=== PATIENT | male | born 1950 | race Caucasian/White ===

== ENCOUNTER 2019-04-17 13:00 | Inpatient (IN) | payer MEDICARE, OTHER ==
[~2019-04-17] VITALS: Ht 193 cm; Wt 107.9 kg
[2019-04-17 13:28] LABS: BASOPHILS ABSOLUTE AUTO 0.09 K/mm3 (0.00-0.23); BASOPHILS PERCENT AUTO 0 % (0-2); EOSINOPHILS ABSOLUTE AUTO 0.04 K/mm3 (0.00-0.68); EOSINOPHILS PERCENT AUTO 0 % (0-6); Hematocrit 44.3 % (37.0-53.0); Hemoglobin 15.6 g/dL (13.5-17.5); IMMATURE GRAN ABSOLUTE AUTO 0.15 K/mm3 (0.00-0.10); IMMATURE GRAN PERCENT AUTO 1 % (0-1); LYMPHOCYTES ABSOLUTE AUTO 1.46 K/mm3 (0.84-5.20); LYMPHOCYTES PERCENT AUTO 6 % (21-46); MONOCYTES ABSOLUTE AUTO 1.67 K/mm3 (0.16-1.47); MONOCYTES PERCENT AUTO 7 % (4-13); Mean Corpuscular HGB 32.8 pg (26.0-34.0); Mean Corpuscular HGB Conc 35.2 g/dL (31.5-36.5); Mean Corpuscular Volume 93 fL (80-100); Mean Platelet Volume 10.1 fL (9.1-12.4); NEUTROPHILS ABSOLUTE AUTO 19.36 K/mm3 (1.96-9.15); NEUTROPHILS PERCENT AUTO 85 % (41-73); Platelet Count 310 K/mm3 (150-400); RDW Coefficient Variation 12.8 % (11.7-14.2); Red Blood Cell Count 4.76 M/mm3 (4.30-5.90); White Blood Cell Count 22.77 K/mm3 (4.00-11.30)
[2019-04-17 13:28] LABS: Source, Urine Clean Catch
[2019-04-17 13:32] LABS: Appearance, Urine Clear (Clear); Bilirubin, Urine Neg (Neg); Blood, Urine Neg (Neg); Color, Urine Yellow (P-Yellow); Glucose Qualitative, Urine Neg (Neg); Ketones, Urine Neg (Neg); Leukocyte Esterase, Urine 1+ (Neg); Nitrite, Urine Neg (Neg); Protein, Urine Neg (Neg); Urobilinogen, Urine NORM (Normal)
[2019-04-17 13:37] LABS: Red Blood Cells, Urine 0-2 /hpf (0-2)
[2019-04-17 13:38] LABS: Bacteria Many /hpf; Squamous Epithelial Cells Rare /hpf (Few)
[2019-04-17 13:42] LABS: U Amphetamine Screen Not Detected; U Barbituate Screen Not Detected; U Benzodiazapine Screen Not Detected; U Buprenorphine Screen Not Detected; U Cannabinoids Screen Not Detected; U Cocaine Screen Not Detected; U Methadone Screen Not Detected; U Methamphetamine Screen Not Detected; U Opiates Screen Not Detected; U Oxycodone Screen DETECTED; U Phencyclidine Screen Not Detected; U Propoxyphene Screen Not Detected
[2019-04-17 13:47] LABS: Alanine Aminotransfer (ALT/SGP 30 U/L (12-78); Albumin, Blood 3.5 g/dL (3.4-5.0); Albumin/Globulin Ratio 0.9 (0.8-1.8); Alk Phos 119 U/L (50-136); Anion Gap 10 mmol/L (6-16); Aspartate Aminotrans (AST/SGOT 18 U/L (12-37); Bilirubin, Total 0.8 mg/dL (0.1-1.0); Blood Urea Nitrogen 8 mg/dL (8-24); Bun/Creatinine Ratio 10.7 (12.0-20.0); CO2, Blood 23 mmol/L (21-32); Calcium, Blood 8.3 mg/dL (8.5-10.1); Chloride, Blood 92 mmol/L (98-108); Creatinine, Blood 0.75 mg/dL (0.60-1.20); Globulin, Blood 3.8 g/dL (2.2-4.0); Glomerular Filtration Rate >60 (60-); Glucose, Blood 132 mg/dL (70-99); Potassium, Blood 4.3 mmol/L (3.5-5.5); Sodium, Blood 125 mmol/L (136-145); Total Protein, Blood 7.3 g/dL (6.4-8.2); Troponin I <0.015 ng/mL (0.000-0.040)
--- NOTE | 2019-04-17 18:40 | NUR ---
PATIENT ARRIVED TO ROOM ICU 4 VIA STRETCHER FROM ER AFTER TELEPHONE REPORT WAS CALLED TO THIS RN BY IVAN GONZALEZ, PATIENT WAS ABLE TO MOVE SELF FROM STRETCHER TO BED WITH SBA, PATIENT HAS SORE RIBS AND T8-T9 COMPRESSION FRACTURE FROM FALL A FEW DAYS EARLIER, FOR WHICH HE WAS HOSPITALIZED AT [place], [place], PATIENT IS AFEBRILE, SCD'S APPLIED, PATIENT WAS GIVEN A SANDWICH AND SOUP, MEDICATION LIST IS INCOMPLETE, PATIENT DOES NOT KNOW HIS MEDICATIONS AT THIS TIME, PLACED ON MONITOR, CALL LIGHT GIVEN AND EXPLAINED, WILL CONTINUE TO MONITOR AND GIVE REPORT TO ONCOMING PEN MAKER.
--- NOTE | 2019-04-17 20:00 | NUR ---
PT RESTING IN BED. A/O X4. C/O PAIN IN BACK AND RIBS. PT HAS FRACTURES TO RIBS AND BACK, MEDICATED WITH OXYCODONE. LIBRIUM GIVEN WELL, SEE CIWA DOCUMENTATION. PT IS PLEASANT AND COOPERATIVE. NO SIGN OF DISTRESS.
[2019-04-18 03:20] LABS: BASOPHILS PERCENT AUTO 1 % (0-2); EOSINOPHILS ABSOLUTE AUTO 0.11 K/mm3 (0.00-0.68); EOSINOPHILS PERCENT AUTO 1 % (0-6); Hematocrit 42.1 % (37.0-53.0); Hemoglobin 14.2 g/dL (13.5-17.5); IMMATURE GRAN ABSOLUTE AUTO 0.09 K/mm3 (0.00-0.10); IMMATURE GRAN PERCENT AUTO 1 % (0-1); LYMPHOCYTES ABSOLUTE AUTO 2.21 K/mm3 (0.84-5.20); LYMPHOCYTES PERCENT AUTO 12 % (21-46); MONOCYTES ABSOLUTE AUTO 1.81 K/mm3 (0.16-1.47); MONOCYTES PERCENT AUTO 10 % (4-13); Mean Corpuscular HGB 33.2 pg (26.0-34.0); Mean Corpuscular HGB Conc 33.7 g/dL (31.5-36.5); NEUTROPHILS ABSOLUTE AUTO 13.49 K/mm3 (1.96-9.15); NEUTROPHILS PERCENT AUTO 76 % (41-73); Platelet Count 269 K/mm3 (150-400); RDW Coefficient Variation 13.1 % (11.7-14.2); RDW Standard Deviation 47.1 fL (35.1-46.3); Red Blood Cell Count 4.28 M/mm3 (4.30-5.90); White Blood Cell Count 17.81 K/mm3 (4.00-11.30)
[2019-04-18 03:22] LABS: Mean Corpuscular Volume 98 fL (80-100)
[2019-04-18 03:39] LABS: Alanine Aminotransfer (ALT/SGP 22 U/L (12-78); Albumin, Blood 2.7 g/dL (3.4-5.0); Albumin/Globulin Ratio 0.9 (0.8-1.8); Alk Phos 99 U/L (50-136); Anion Gap 4 mmol/L (6-16); Aspartate Aminotrans (AST/SGOT 16 U/L (12-37); Bilirubin, Total 1.1 mg/dL (0.1-1.0); Blood Urea Nitrogen 11 mg/dL (8-24); Bun/Creatinine Ratio 11.6 (12.0-20.0); CO2, Blood 29 mmol/L (21-32); Calcium, Blood 7.8 mg/dL (8.5-10.1); Chloride, Blood 98 mmol/L (98-108); Creatinine, Blood 0.95 mg/dL (0.60-1.20); Globulin, Blood 3.1 g/dL (2.2-4.0); Glomerular Filtration Rate >60 (60-); Glucose, Blood 92 mg/dL (70-99); Potassium, Blood 4.9 mmol/L (3.5-5.5); Sodium, Blood 131 mmol/L (136-145); Total Protein, Blood 5.8 g/dL (6.4-8.2)
--- NOTE | 2019-04-18 06:19 | NUR ---
SUMMARY PT RESTING IN BED. A/O X4. HAS HAD PAIN IN BACK AND RIBS ALL NIGHT. PROVIDED HEATING PAD AND GAVE OXYCODONE WHICH PROVIDED GOOD RELIEF. LAST CIWA SCORE OF 9. PLEASANT AND COOPERATIVE WITH CARE AND ASKING QUESTIONS ABOUT CARE. NO SIGN OF DISTRESS.
--- NOTE | 2019-04-18 07:20 | NUR ---
START OF SHIFT NOTE: RECEIVED REPORT FROM IVAN ECHOLS, ASSUMED CARE, PATIENT IS SLEEPING BUT EASILY AROUSEABLE, DENIES ANY PAIN AT THIS TIME, AFEBRILE, LUNG SOUNDS ARE DIMINISHED, NSR, HR IN 90'S, BOWEL TONES HYPOACTIVE, PATIENT USES URINAL AND STANDS AT SIDE OF BED TO URINATE, COOPERATIVE AT THIS TIME, CALL LIGHT IN REACH, WILL CONTINUE TO MONITOR.
--- NOTE | 2019-04-18 08:18 | NUR ---
PATIENT FOUND TRYING TO EXIT BED, ASKED FOR URINAL, CALL LIGHT USE REINFORCED, PATIENT VERBALIZED UNDERSTANDING, VOIDED ORANGE COLORED URINE, STANDS AT SIDE OF BED WITH ONE ASSIST, BACK TO BED, SET UP FOR BREAKFAST, PATIENT VERY APPRECIATIVE AND COOPERATIVE, CALL LIGHT IN REACH, WILL CONTINUE TO MONITOR.
--- NOTE | 2019-04-18 09:15 | NUR ---
DR. LESTER IN TO SEE PATIENT, NO NEW ORDERS RECEIVED.
--- NOTE | 2019-04-18 10:03 | NUR ---
PATIENT RECEIVED 25 MG OF LIBRIUM PRN FOR INCREASE S/S OF WITHDRAWAL, RECEIVED BED BATH, COOPERATIVE, APPRECIATIVE, CALL LIGHT IN REACH, WILL CONTINUE TO MONITOR.
--- NOTE | 2019-04-18 12:31 | NUR ---
PATIENT'S NIECE ROSALES CALLED AND INQUIRED ABOUT HER UNCLE, SHE IS ON LIST TO GIVE INFORMATION TO AND WAS UPDATED ABOUT PATIENT'S CONDITION, WILL LET PATIENT KNOW AND HE CAN CALL HER BACK.
--- NOTE | 2019-04-18 12:41 | NUR ---
LAB IN TO DRAW BLOOD, PATIENT C/O NAUSEA, RECEIVED 4 MG ZOFRAN IV ORDERED, WILL CONTINUE TO MONITOR.
[2019-04-18 12:56] LABS: Hemoglobin 15.1 g/dL (13.5-17.5)
--- NOTE | 2019-04-18 12:58 | NUR ---
PATIENT RECEIVED 10 MG OF ROXANOL FOR 8/10 BACKPAIN AND BILATERAL RIB PAIN, WILL CONTINUE TO MONITOR.
--- NOTE | 2019-04-18 15:52 | NUR ---
PATIENT IS BECOMING MORE RESTLESS AND ANXIOUS, ASKING FOR A CONVENIENT STORE IN THE AREA, ADVISED THAT HE CAN'T LEAVE UNLESS SIGNING AMA, PATIENT OPTED TO STAY IN HOSPITAL, CONTINUES TO ASK FOR NICOTINE PATCH AND "MORE MEDICATIONS", RECEIVED 50 MG OF LIBRIUM PRN FOR INCREASED RESTLESSNESS, CALL LIGHT IN REACH, WILL CONTINUE TO MONITOR.
--- NOTE | 2019-04-18 17:00 | NUR ---
ASSUMED CARE OF PT
--- NOTE | 2019-04-18 18:14 | NUR ---
PT REMAINS ALERT IN BED, ATE DINNER INDEPENDENTLY. CALL LIGHT WITHIN REACH. MILD TREMORS NOTED, MEDICATED WITH LIBRIUM, NO OTHER COMPLAINTS AT THIS TIME.
[2019-04-18 21:06] LABS: Hematocrit 39.7 % (37.0-53.0); Hemoglobin 13.4 g/dL (13.5-17.5)
--- NOTE | 2019-04-19 04:25 | NUR ---
PT C/O CHEST PRESSURE. STATES "IT FEELS LIKE ANGINA". ASKED PT WHAT HE DOES AT HOME FOR ANGINA AND HE STATES HE TAKES A NITRO AND IT GOES AWAY. CALLED DR. DAVIS WHO ORDERED NITRO AND AN EKG IF SYMPTOMS DON'T SUBSIDE. NO CHANGES ON THE MONITOR, VSS, AND PT FALLS TO SLEEP BEFORE THE 5 MINUTE REASSESS OF THE NITRO. DENIES CHEST PRESSURE AFTER NITRO.
--- NOTE | 2019-04-19 05:29 | NUR ---
SUMMARY PT RESTING IN BED. A/O X4. DENIES PAIN AT THIS TIME. HAS NOT HAD CP OR PRESSURE AFTER ON DOSE OF NITRO THIS AM. HAS BEEN GETTING LIBRIUM REGULARLY FOR ETOH WD. SEE [facility] DOCUMENTATION. PT IS STILL UNSTEADY ON FEET BUT HAS IMPROVED. NO SIGN OF DISTRESS. USES CALL LIGHT APPROPRIATELY.
--- NOTE | 2019-04-19 08:33 | NUR ---
C/O CHEST PAIN 03/16. BP 174/83. 1 NTG SL GIVEN.
--- NOTE | 2019-04-19 08:37 | NUR ---
PT SLEEPING AT THIS TIME. NO SIGNS OF CP. BP 158/80
--- NOTE | 2019-04-19 09:13 | NUR ---
DR CAMPBELL CONSULTED ABOUT HR OF 130s-140s V/O FOR 12 LEADKEKG
--- NOTE | 2019-04-19 13:55 | NUR ---
TO CT PT TO CT WITH TRANSPORTER VIA BED.
--- NOTE | 2019-04-19 14:12 | NUR ---
PT BACK FROM CT RETURNS FROM CT WITH TRANSPORTER IN BED.
--- NOTE | 2019-04-19 18:39 | NUR ---
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 PT WAS ON HIS WAY TO [place] AFTER LOSING HIS HOME IN [place] TO LIVE WITH MARIA DOLORES JEAN-BAPTISTE. PT WAS ADMITTED TO [facility] FOR ETOH WITHDRAWL A FEW DAYS AGO, WAS D/C AND SHOWED UP AT [facility] WITH C/O ETOH WITHDRAWL AFTER DRINKING BEER POST D/C FROM [place]. PT EXPRESSED DESIRE TO QUIT DRINKING, DENIES SI OR HI. PT INTERMITENTLY TODAY C/O "8/10" CP, BACK PAIN, RIB PAIN THAT WAS NOT WELL RESOLVED WITH OXYCODONE. PT ASKING NUMEROUS TIMES FOR LIBRIUM TODAY DESPITE BEING CONSTANTLY MEDCIATED WITH LIBRIUM T/O DAY STS "IT HELPS THE PAIN". AT THE END OF SHIFT PT STS "I FEEL TERRIBLE" WHEN ASKED TO EXPLAIN WHAT TERRRIBLE IS TO HIM PT REFUSED, THEN STS "WELL I NOW HAVE SHINGLES ALL OVER MY BODY" NO RASH NOTED. PT ALSO EXPRESSED THAT HE IS "LOSING ALL BODILY FUNCTION" WHEN ASKED WHAT HE MEANS BY THAT STS "MY BOWELS AND BLADDER ARE FAILING, I CAN'T HOLD THEM" PT DOES NOT BECOME INCONTENANT OF BLADDER OR BOWEL T/O SHIFT. PT CARDIAC CATH LAB RADIOLOGY TECHNOLOGIST LIGHT T/O THE DAY TO ASK FOR PERMISSION TO "ROLL OVER" BY THE END OF THE SHIFT PT STS THAT HE CAN NO LONGER ROLL SELF, WHEN ASKED WHAT CHANGED PT STS "I JUST CAN'T" WHEN ENCOURAGED TO ROLL SELF PT ABLE TO ROLL SELF W/O DIFFICULTY
--- NOTE | 2019-04-19 19:36 | NUR ---
ASSUMED CARE OF PT, APPEARS TO BE SLEEPING AT THIS TIME ON RIGHT SIDE RESP EVEN AND REGULAR LIGHTS ARE OFF IN ROOM, WILL MONITOR.
[2019-04-19 21:12] LABS: Stool Occult Blood Guaiac 1 Neg (Neg)
[2019-04-20 05:07] LABS: BASOPHILS ABSOLUTE AUTO 0.08 K/mm3 (0.00-0.23); BASOPHILS PERCENT AUTO 1 % (0-2); EOSINOPHILS ABSOLUTE AUTO 0.34 K/mm3 (0.00-0.68); EOSINOPHILS PERCENT AUTO 3 % (0-6); Hematocrit 39.7 % (37.0-53.0); Hemoglobin 13.1 g/dL (13.5-17.5); IMMATURE GRAN ABSOLUTE AUTO 0.11 K/mm3 (0.00-0.10); IMMATURE GRAN PERCENT AUTO 1 % (0-1); LYMPHOCYTES ABSOLUTE AUTO 1.94 K/mm3 (0.84-5.20); LYMPHOCYTES PERCENT AUTO 14 % (21-46); MONOCYTES ABSOLUTE AUTO 0.97 K/mm3 (0.16-1.47); MONOCYTES PERCENT AUTO 7 % (4-13); Mean Corpuscular HGB 32.5 pg (26.0-34.0); Mean Corpuscular Volume 99 fL (80-100); Mean Platelet Volume 10.7 fL (9.1-12.4); NEUTROPHILS ABSOLUTE AUTO 10.07 K/mm3 (1.96-9.15); NEUTROPHILS PERCENT AUTO 75 % (41-73); Platelet Count 278 K/mm3 (150-400); RDW Coefficient Variation 13.1 % (11.7-14.2); Red Blood Cell Count 4.03 M/mm3 (4.30-5.90); White Blood Cell Count 13.51 K/mm3 (4.00-11.30)
[2019-04-20 06:27] LABS: Alanine Aminotransfer (ALT/SGP 37 U/L (12-78); Albumin, Blood 2.3 g/dL (3.4-5.0); Albumin/Globulin Ratio 0.7 (0.8-1.8); Alk Phos 109 U/L (50-136); Anion Gap 5 mmol/L (6-16); Aspartate Aminotrans (AST/SGOT 34 U/L (12-37); Bilirubin, Total 0.7 mg/dL (0.1-1.0); Blood Urea Nitrogen 7 mg/dL (8-24); Bun/Creatinine Ratio 8.1 (12.0-20.0); CO2, Blood 28 mmol/L (21-32); Calcium, Blood 7.8 mg/dL (8.5-10.1); Chloride, Blood 101 mmol/L (98-108); Creatinine, Blood 0.87 mg/dL (0.60-1.20); Globulin, Blood 3.2 g/dL (2.2-4.0); Glomerular Filtration Rate >60 (60-); Glucose, Blood 108 mg/dL (70-99); Potassium, Blood 4.2 mmol/L (3.5-5.5); Sodium, Blood 134 mmol/L (136-145); Total Protein, Blood 5.5 g/dL (6.4-8.2)
--- NOTE | 2019-04-20 06:47 | NUR ---
PT RESTS QUIETLY THIS SHIFT, CIWA MAX OF 11, TOLERATES LIBRIUM WELL, PT IS NOTED TO REQUEST DOSES AT TIMES THAT HE STATES HE IS FEELING MORE SHAKY. VITALS HAVE BEEN STABLE THIS SHIFT. 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 UP TO BSC WITH 1 PERSON CONTACT GUARD ASSIST AND TOLERATES WELL, GAIT IS NOTED UNSTEADY. EXTRA LARGE, FORMED, BROWN BOWEL MOVEMENT AT TIME OF HS ASSESSMENT, GUIAC PER ORDERS AND WAS NEGATIVE. OTHERWISE NO ACUTE CHANGES.
--- NOTE | 2019-04-20 07:30 | NUR ---
Patient sleeping. He is on RA and sats 96%. He has SCD's in place. He has 18ga IV in LAC dressing intact and site WNL's and infusing NS 125ml/hr. He awakens for care and let him go back to sleep after VS.
--- NOTE | 2019-04-20 07:30 | NUR ---
Recieved report from Sydney LOVE. Sintia sitting on right hand side of bed leaning on table. He speech is clear and she is able to communicate her needs. She does make odd statemnets related to voices she here when staff are talking and states that everyone that walks by room is a family member. when telling her her CBG she stated that's not my birthday and goes off on a tangent of everything that happened on 03/17. She is on RA and sats in the upper 90%. Her systolic 150's and HR 80-90 ST. Roberto has Heparin gtt going at 17 units/hr anmd just increased to 19 and 2200 unit bolus. Her critical value CBG [address] Wu and giving 10 units Humalog SC and 5 units IV. She has PowerGlide BLACK and dressing intact and site WNL's and infusing above heparin. She also has 24 ga IV in LH and dressing intact and site WNL's and flushed and SL'd. She has Fistula right upper arm. She is going to [facility] at [phone] per clinical laboratory service teacher. Dialysis called and postponed until later.She tolerated am meds with water.
--- NOTE | 2019-04-20 09:30 | NUR ---
Patient tolerated meds with apple juice. Placed nicotine patch left shoulder. He continues NS at 125ml/hr. He denies and SI and denies any thoughts of hurting anyone else, last drink states 2 days. Talked with daughter and she stated several family members have heard him state thoughts of self harm. VSS. He sat up at bedside to eat warmed up breakfast.
--- NOTE | 2019-04-20 10:15 | NUR ---
No significant changes with patient. She has recieved several phone calls from family. She tolerated 0900 meds with water. Called pipelines laborer and they stated cath was cancelled, I called security systems technician and guido stated she cancelled cath r/t labs.
--- NOTE | 2019-04-20 11:30 | NUR ---
Patient resting. No significant changes. Assisted patient to stand to use urinal and was stable but weak and was unable to stand for a long period of time. He remains on RA and sats upper 90%'s.
--- NOTE | 2019-04-20 11:40 | NUR ---
Called Dr Wu for critical value CBG of 746 and repeated 10 units humalog SC and 5 units regular IV.
--- NOTE | 2019-04-20 14:28 | NUR ---
Patient sleeping and awakend for VS and brief care.
--- NOTE | 2019-04-20 18:42 | NUR ---
Got patient up to chair post bath and he cleaned himself up a little after we cleaned him. Dr Wu was here and ghe was made med status. He was SBA back to bed. He sats up and ate new regular diet. We interrupted his eating to place power glide as both IV in left arm were leaking from his constant movement. VSS. He continues on RA and sats 96%. .
--- NOTE | 2019-04-20 20:30 | NUR ---
ASSUMED PT CARE, PT HAS BEEN CHANGED TO MED STATUS AT END OF DAYSHIFT. PT IS AWAKE, & ALERT, SL RAMBLING CONVERSATION ASKING ABOUT AA MEETINGS. REQUEST PAIN MED FOR RIB & BACK PAIN STATES 8/10 DISCOMFORT. PT ASSISTED TO STAND TO VOID, VOIDED 1100CC ZEE URINE. SL UNSTEADY ON FEET. REQUESTS OJ & VANILLA PUDDING WHICH HAS BEEN PROVIDED. PT USING HIS LAPTOP IN ROOM, GIVEN PHONEBOOK PER HIS REQUEST. PT ASKS WHEN NEXT DOSE OF LIBRIUM IS, DENIES NEED AT PRESENT, WILL GIVE AT ~2400, REQUESTS TO BE AWAKENED.
--- NOTE | 2019-04-21 03:10 | NUR ---
PT HAS BEEN ASKING WHEN TIME FOR PAIN MEDS & LIBRIUM. WAS ASSISTED TO STAND TO VOID & SL UNSTEADY, PT NOTED W TREMOR & CO NAUSEA. DR DAVIS NOTIFIED & ORDER FOR ZOFRAN OBTAINED. PT MED W ZOFRAN & ATIVAN. STATES ONLY MINIMAL RELIEF W OXYCODONE.
[2019-04-21 03:38] LABS: BASOPHILS ABSOLUTE AUTO 0.08 K/mm3 (0.00-0.23); BASOPHILS PERCENT AUTO 1 % (0-2); EOSINOPHILS PERCENT AUTO 5 % (0-6); Hemoglobin 13.2 g/dL (13.5-17.5); IMMATURE GRAN ABSOLUTE AUTO 0.11 K/mm3 (0.00-0.10); IMMATURE GRAN PERCENT AUTO 1 % (0-1); LYMPHOCYTES ABSOLUTE AUTO 1.44 K/mm3 (0.84-5.20); LYMPHOCYTES PERCENT AUTO 14 % (21-46); MONOCYTES ABSOLUTE AUTO 0.98 K/mm3 (0.16-1.47); MONOCYTES PERCENT AUTO 10 % (4-13); Mean Corpuscular Volume 100 fL (80-100); Mean Platelet Volume 9.9 fL (9.1-12.4); NEUTROPHILS ABSOLUTE AUTO 7.16 K/mm3 (1.96-9.15); NEUTROPHILS PERCENT AUTO 70 % (41-73); Platelet Count 308 K/mm3 (150-400); RDW Coefficient Variation 13.1 % (11.7-14.2); RDW Standard Deviation 48.1 fL (35.1-46.3); White Blood Cell Count 10.27 K/mm3 (4.00-11.30)
--- NOTE | 2019-04-21 06:30 | NUR ---
PT CALLED & ASKED FOR PAIN MED, BUT UNABLE TO SEE PT W DIFFERENT PT. PT IS SLEEPING SOUNDLY ON R SIDE AT THIS TIME. REPORT TO DAYSHIFT.
--- NOTE | 2019-04-21 07:30 | NUR ---
Rcieved report Darius LOVE. Patient called for assist to stand to urinate and output 800ml/yellow. He requested something for anxiety and pain medication as well as gave am meds. He remains on RA and sats mid 90%'s. He is very pleasant but demanding with care. SCD's in place. He has no IV and OK with last night and all PO meds. He is back to resting.
--- NOTE | 2019-04-21 09:35 | NUR ---
Patient sitting up in bed still eating breakfast. Gave rest of am meds with apple juice and he tolerated well. He really like our apple juice. VSS
--- NOTE | 2019-04-21 11:27 | NUR ---
Initial palliative care consult: Mukul is a 68 year old homeless gentleman who is passing through [place] on his way to [place]. He was staying in a local hotel and had abdominal pain and N/V. He has a history of a perforated ulcer, HTN, CAD, hyperlipidemia, hypothyroidism, chronic ETOH use and ETOH withdrawl seizures. He was recently discharged from the [facility] where he was admitted for rib and vertebrae fractures s/p a fall. He has a dishelved appearance. He is quite sleepy, but does open his eyes when spoken to. Mukul is alert and oriented, however he reports he is "very tired" despite also reporting that he has "slept really well" for the past several nights. He reports a long history of ETOH and smoking starting at age 14. He has two daughters, Orly, who he has contact with and Kristen, who "chose to have a normal life" and whom he has no contact with. He reports he has been in and out of treatment multiple times in the past with one stretch of sobriety lasting about 20 years. He reports a in the family was a trigger to resume drinking. He is interested in rehab at this time. He also states he would like to quit smoking too. CIWA protocol is in place. He tells me he has on a nicotine patch. He has a flat affect. He answers questions slowly but answers appropriately. He reports rib pain 8/10 with coughing and deep breathing. He has a very moist sounding cough that he reports is productive to thick brown sputum on occasion. He reports that he breathes shallowly because "it hurts." He reports some nausea that he has "all the time" but no emesis today. During our conversation he stated that he is starting to "see things that aren't there." in his peripheral vision. He reports auditory hallucinations at times as well. Slight tremor noted when he held his hand out. He reports that when he attempts to eat, his hands get "really shakey." Discussed his wishes re: code status and care planning. At this time he confirms his full code status. He reports that he would not want to be kept alive on machines for very long. He wants to go to rehab and have a place to live. Nursing reports his daughter Orly had been in contact this morning and is working to get him into a local treatment program with the goal of transferring him to a rehab facility in [place]. Mukul is agreeable to his plan at this time. Helped him fill out his menu and notified nursing of his c/o of visual and auditory hallucinations, nausea and slight tremor. He currently denies feeling anxious. Will plan to offer to assist him with filling out AD/POLST once he is more awake. At this time he tells this technical publications writer that he is very sleepy and just wants to rest.
--- NOTE | 2019-04-21 12:22 | NUR ---
RECEIVED REPORT FROM IVAN ENRIQUE
--- NOTE | 2019-04-21 12:40 | NUR ---
Patient sitting up in bed and medicated with Librium. He continues to have mild tremors. Called report to 362 RN and patient will transfer via wheelchair with all belongings.
--- NOTE | 2019-04-21 13:22 | NUR ---
ARRIVED TO ROOM VIA W/C; ORIENTED TO ROOM AND FREQUENT ROUNDING SCHEDULE. PT RESTING IN BED AND IN NO ACUTE DISTRESS. CALL LIGHT WITHIN REACH. BED LOW AND IN LOCKED POSITION.
--- NOTE | 2019-04-21 17:19 | NUR ---
SHIFT SUMMARY TRANSFER PT FOR ETOH ABUSE. CIWA 7 AND MEDICATED PER MD ORDER. RESTING QUIETLY THROUGHOUT SHIFT. UNSTEADY WHILE USING URINAL THIS P.M. BED ALARM APPLIED. COOPERATIVE. FORGETFUL. UNABLE TO STATE MONTH, YEAR CLOUDED SENSORIUM. AWAITING PLACEMENT IN TREATMENT CENTER OR OTHER LIVING SITUATION.
--- NOTE | 2019-04-21 17:38 | NUR ---
Pt was able to wash most of himself. standby to w/c for transfer up to med floor. Standby to bed. call light in reach.
--- NOTE | 2019-04-22 05:49 | NUR ---
SHIFT SUMMARY PT WITH ALCOHOL WITHDRAWL, SCORING CIWAs TONIGHT RAGING FROM 8-12. PT SPENDS MOST OF TIME SLEEPING, BUT IS ALERT. ORIENTED TO YEAR, SELF, FOLLOWING DIRECTIONS. PT IS VERY WELL MANNERED AND COOPERATIVE WITH CARE. BUE TREMORS. WEAK GAIT, SBA AT THE BEDSIDE WITH URINAL. VSS. 10MG PO OXYCODONE GIVEN 1X FOR BACK PAIN, PO ATIVAN GIVEN TWICE FOR ANXIETY, LIBRIUM GIVEN PER SCHEDULED. NO IV ACCESS. SCDs IN PLACE. CALL LT APPROP, HOWEVER BED ALARM ON FOR SAFETY. WILL CONT TO MONITOR AND PROVIDE CARE UNTIL PRESUMED BY ONCOMING RN.
--- NOTE | 2019-04-22 18:22 | NUR ---
SHIFT SUMMARY THIS AM PATIENT ORIENTED X3 AND DROWSY, TOO WEAK TO STAND UP. THROUGH DAY PATIENT IMPROVED, THIS AFTERNOON PT IS ORIENTED X4 AND ABLE TO WALK TO BATHROOM TO HAVE BM. PT IS PLEASANT AND COOPERTIVE. CIWA SCORES 3-7. PT STATES HE HAS A CONSTANT HEADACHE AND WAS SOMEWHAT NAUSEOUS FOR LUNCH. HE HAS ASKED FOR ATIVAN 2X, STATES HE IS SEEING THINGS THAT AREN'T THERE BUT IS NOT ABLE TO DESCRIBE ANYTHING, OTHER S/S HALLUCINATIONS NOT NOTED. ATIVAN NOT GIVEN, CIWA SCORE NOT HIGH ENOUGH PER WITHDRAWAL PROTOCOL. PT GETS UP WITH FWW AND STANDBY ASSIST, SCDS ON, PT CALLING APPROPRIATELY. GOWN CHANGED, BEDDING CHANGED, NATARAJAN TRIMMED. DAUGHTER CALLED FOR UPDATE, DR CAMPBELL CALLED AND SPOKE TO HER. DAUGHTER (ESTIVEN) NUMBER WRITTEN ON BOARD.
--- NOTE | 2019-04-22 18:32 | NUR ---
Spiritual Care inital visit: Mukul seems a bit groggy this afternoon, but he did engage briefly. He tells me that he is hoping to get to [place] eventually and he wants to quit drinking. He is hoping for placement in drug/ETOH in-paient rehab. He admits he has tried to quit many times in the past. Visit cut short by Mukul's need to use restroom. [facility] will remain available.
--- NOTE | 2019-04-23 05:08 | NUR ---
SHIFT SUMMARY NO ACUTE CHANGES OVERNIGHT. CIWAS HAVE BEEN LOW, RANGING 4-7. PT HAS ASKED RN SEVERAL TIMES FOR "ANXIETY MEDS" BUT DOES NOT APPEAR TO BE HAVING ANY ANXIETY OR DISTRESS. ANXIETY MEDS NOT GIVEN TONIGHT. LIBRIUM GIVEN PER EMAR SCHEDULE. 5MG PO OXYCODONE GIVEN TWICE FOR RIB/BACK PAIN. PT 1 PER ASSIST, CALL LT APPROP. PLEASANT AND COOP WITH CARE. WILL CONT TO MONITOR AND PROVIDE CARE UNTIL PRESUMED BY ONCOMING RN
--- NOTE | 2019-04-23 17:49 | NUR ---
SHIFT SUMMARY NO ACUTE CHANGES TO PATIENT CONDITION, PATIENT SLEPT MOST OF DAY, STATES HE FEELS OKAY AND IS JUST SLEEPY. HE HAS NO REAL SIGNS OF WITHDRAWAL, CIWAS 2-5 D/T HEADACHE AND STOMACH FEELING OFF. REQUESTED MORE ENSURE DRINKS OR MILK. HE IS ALERT AND ORIENTED X4 WHEN AWAKE. HE IS SLOW TO GET UP/AMBULATE, BUT CAN MOVE SELF AROUND IN BED AND IS STEADY WALKING TO THE BATHROOM WITH STANDBY ASSIST. LIBRIUM AND OXYCODONE D/C TODAY, NOTHING FOR PAIN GIVEN. VSS, HAD A BM TONIGHT.
--- NOTE | 2019-04-24 06:14 | NUR ---
SHIFT SUMMARY NO ACUTE CHANGES TONIGHT. PT IS A&O TO SELF, FOLLOWING DIRECTIONS, FAMILY. TAKES CUES AND HINTS TO RECALL DATE, PLACE, CURRENT EVENTS. PT IS WITH FLAT AFFECT. USES CALL LT APPROP. RIDDHI DC'd FOR SCORE <8 X 72 HRS. PT CONT TO REQUEST ANXIETY MEDS BUT DOES NOT APPEAR TO BE ANXIOUS OR IN ANY DISTRESS. TYLENOL GIVEN TWICE FOR BACK, PROVIDES RELIEF. LARGE BM TONIGHT. AMBULATORY WITH 1 PER ASSIST c FWW. WILL CONT TO MONITOR AND PROVIDE CARE UNTIL PRESUMED BY ONCOMING RN.
--- NOTE | 2019-04-24 17:28 | NUR ---
PT AOX3 WITH SOME MINOR CONFUSION. PLEASANT WITH ALL CARE AND CALLS APPROPRIATELY. PT HAS BEEN GOOD ABOUT CALLING TO GO TO RESTROOM AND IS A ONE PERSON STANDBY WITH WALKER. TREATED FOR BACK PAIN PER EMAR. NO DISTESS NOTED.
--- NOTE | 2019-04-24 22:51 | NUR ---
PATIENT RESTING IN BED. REQUEST TYLENOL FOR RIB PAIN PER EMAR. PATIENT REPORTS REDUCED PAIN WITH HEAT PAD ALSO IN USE.
--- NOTE | 2019-04-25 03:26 | NUR ---
SHIFT SUMMARY PATIENT HAD NO ACUTE CHANGES OBSERVED. AXOX 3 AND SBA W/FWW TO BR. NO IV ACCESS. VSS/AFBERILE. REPORTED RIB PAIN X TWO AND RECEIVED TYLENOL PER EMAR. PATIENT USES HEATING PAD WITH GOOD RESULTS FOR RIB PAIN REDUCTION. DENIES SOB AND N/V. PATIENT USED HIS COMPUTER FIRST PART OF SHIFT. CALL LIGHT IN REACH. BED IN LOWEST POSITION. WILL CONTINUE TO MONITOR UNTIL DAY SHIFT NURSE ASSUMES CARE.
--- NOTE | 2019-04-25 18:17 | NUR ---
PT AOX3 AND COOPERATIVE OF CARE. PT REPORTED HAVING PAIN RATING AT A 10 THIS AM EVEN WITH TYLENOL GIVEN. DR LESTER PRESCRIBED UTRAM AND THIS WAS GIVEN PER EMAR. PAIN HAS BEEN MANAGABLE PER PT STATEMENT. PT IS A ONE PERSON STANDBY TO RESTROOM AND CALLS APPROPRIATELY. NO DISTRESS NOTED AT THIS TIME. WILL CONTINUE TO MONITOR.
--- NOTE | 2019-04-26 03:19 | NUR ---
SHIFT SUMMARY PATIENT HAD NO ACUTE CHANGES OBSERVED. AXOX 3 AND SBA W/FWW TO BR. NO IV ACCESS. REPORTED LS RIB PAIN AND ULTRAM GIVEN X ONE PER EMAR. USES HEAT PAD TO MANAGE PAIN WELL. VSS/FEBRILE. DENIES SOB AND N/V. LISTENING TO MUSIC ON PERSONAL COMPUTER FIRST PART OF SHIFT. COOPERATIVE WITH CARE. CALL LIGHT IN REACH. BED IN LOWEST POSITION. WILL CONTINUE TO MONITOR UNTIL DAY SHIFT NURSE ASSUMES CARE.
--- NOTE | 2019-04-26 18:46 | NUR ---
SHIFT SUMMARY MIKE WAS PLEASANT AND ALERT AND MOSTLY ORIENTED THIS SHIFT, THOUGH STATES HE FEELS FUZZY AND HE DOES APPEAR TO BE SLIGHTLY CONFUSED. RESTED COMFORTABLY IN BED TODAY, DECLINED TO GET OOB TO CHAIR HE FELT SO VERY TIRED. PAINFUL RIBS AND BACK, GOT TRAMADOL WHICH HELPED. BLADDER SCAN PVR SHOWED RETAINING OVER 500ML, DR LESTER ORDERED STRAIGHT CATH. HAS BEEN INDEPENDENT IN ROOM. MOSTLY CONTINENT, SLIGHT INCONTINENCE. TOOK MEDS PRESCRIBED. CALL LIGHT IN REACH, [facility]
--- NOTE | 2019-04-27 05:46 | NUR ---
SHIFT SUMMARY: MIKE IS A 68 Y/O MALE ADMITTED FOR ALCOHOL WITHDRAWL, AND COMPRESSION FX OF THE T8 AND T9. HE HAS HAD A GOOD NIGHT, WITH VERY LITTLE PAIN, ONLY NEEDING PAIN MEDS ABOUT EVERY 4-5 HOURS. HE SLEPT GOOD THROUGHOUT THE NIGHT IN BETWEEN INTERVENTIONS. PAIN WAS ALSO MANAGED BY HEAT. HE WAS GETTING UP TO USE THE URINAL BUT POST VOID WAS 670 THEREFORE STRAIGHT CATH WAS PERFORMED WITH ONLY 400 OUT. HE WENT TO SLEEP AFTER WARDS HE WANTED TO BE LEFT ALONE. WILL RE-SCAN AT END OF SHIFT TO SEE WHAT THE BLADDER HAS IN IT BEFORE SHIFT CHANGE. NO OTHER ACUTE CHANGES OCCURED THIS SHIFT. WILL REPORT TO DAY SHIFT RN.
[2019-04-27 08:57] LABS: BASOPHILS PERCENT AUTO 1 % (0-2); EOSINOPHILS ABSOLUTE AUTO 0.43 K/mm3 (0.00-0.68); EOSINOPHILS PERCENT AUTO 5 % (0-6); Hematocrit 47.8 % (37.0-53.0); Hemoglobin 15.5 g/dL (13.5-17.5); IMMATURE GRAN ABSOLUTE AUTO 0.19 K/mm3 (0.00-0.10); IMMATURE GRAN PERCENT AUTO 2 % (0-1); LYMPHOCYTES ABSOLUTE AUTO 2.27 K/mm3 (0.84-5.20); LYMPHOCYTES PERCENT AUTO 24 % (21-46); MONOCYTES PERCENT AUTO 13 % (4-13); Mean Corpuscular HGB 32.4 pg (26.0-34.0); Mean Corpuscular HGB Conc 32.4 g/dL (31.5-36.5); Mean Corpuscular Volume 100 fL (80-100); Mean Platelet Volume 9.9 fL (9.1-12.4); NEUTROPHILS ABSOLUTE AUTO 5.14 K/mm3 (1.96-9.15); NEUTROPHILS PERCENT AUTO 55 % (41-73); Platelet Count 378 K/mm3 (150-400); RDW Coefficient Variation 12.9 % (11.7-14.2); RDW Standard Deviation 47.8 fL (35.1-46.3); Red Blood Cell Count 4.79 M/mm3 (4.30-5.90); White Blood Cell Count 9.33 K/mm3 (4.00-11.30)
[2019-04-27 09:17] LABS: Anion Gap 4 mmol/L (6-16); Blood Urea Nitrogen 13 mg/dL (8-24); Bun/Creatinine Ratio 12.4 (12.0-20.0); CO2, Blood 32 mmol/L (21-32); Chloride, Blood 99 mmol/L (98-108); Creatinine, Blood 1.05 mg/dL (0.60-1.20); Glomerular Filtration Rate >60 (60-); Glucose, Blood 90 mg/dL (70-99); Potassium, Blood 4.9 mmol/L (3.5-5.5); Sodium, Blood 135 mmol/L (136-145)
--- NOTE | 2019-04-27 12:05 | NUR ---
PT. VOIDING SMALL AMOUNTS AND HAD PVR OF 690, SPOKE WITH AND SHE SAID TO PLACE A MAY CATHETER.
[2019-04-27 12:13] LABS: Source, Urine Catheter
[2019-04-27 12:18] LABS: Bilirubin, Urine Neg (Neg); Blood, Urine Neg (Neg); Glucose Qualitative, Urine Neg (Neg); Ketones, Urine Neg (Neg); Leukocyte Esterase, Urine Neg (Neg); Nitrite, Urine Neg (Neg); Protein, Urine Neg (Neg); Urobilinogen, Urine NORM (Normal)
[2019-04-27 12:27] LABS: Appearance, Urine Clear (Clear); Color, Urine Yellow (P-Yellow)
--- NOTE | 2019-04-27 19:21 | NUR ---
PT. SITTING UP IN BED PLAYING ON HIS COMPUTER. PAIN MED GIVEN EARLIER. MAY CATHETER PLACED TODAY R/T URINARY RETENTION. RELATED HE HAD ONE BEFORE BUT IT WAS REMOVED. NO OTHER NOTEABLE CHANGES THIS SHIFT.
--- NOTE | 2019-04-28 03:30 | NUR ---
SHIFT SUMMARY: 68 Y/O MALE, ADMITTED FOR ALCOHOL WITHDRAWL, WITH T8 AND T9 COMPRESSION FX. HAS DONE VERY WELL TONIGHT. PAIN HAS STAYED MANAGED WITH ULTRAM AND TYLENOL. CATHETER HAS REMAINED PATENT AND DRAINING WELL. HE HAS DENIED ANY OTHER CONCERN OR CHANGES SO FAR THIS SHIFT. WILL REPORT OFF TO THE NEXT RN.
--- NOTE | 2019-04-28 05:36 | NUR ---
SHIFT SUMMARY ASSUMED CARE OF PT AROUND 0400 THIS AM. NO ACUTE CHANGES. REPORTS PAIN IN BACK & MEDICATED 1X W/TYLENOL PER ORDERS. MAY IN PLACE & DRAINING. CALL LIGHT IN REACH & I WILL MONITOR PT UNTIL NEXT RN ASSUMES CARE.
--- NOTE | 2019-04-28 13:52 | NUR ---
Palliative care follow up visit: Mukul is awake, alert and oriented and engages easily in conversation. He has a tremor to bilateral hands. He states his back pain is "ok right now," and rates it a 7/10. His reports he can take his pain medication every 4 hours. He is looking forward to going to [place] to stay with his daughter, Orly, after he is discharged. He tells this rfp writer that MALIHA Hyde, is working on a transportation plan via train for him to get to [place]. He states he has a car with his belongings in it which is parked at at a nearby motel. Discussed POLST form as a follow up from an earlier visit during this admission. Mukul states he remembers parts of the conversation this rfp writer and he had re: AD/POLST while he was in the ICU. Reviewed AD and POLST. PT confirms that he wants to remain a full code at this time. However he is only willing to accept life support measures for 3-4 days. He states he doesn't want to live on machines and doesn't want to be a burden on anyone. He states that he had two brothers that from cancer and he would not want to go through that. He said if he had cancer he would look into assisted suicide. POLST form placed on pt's white board. Will have hospitalist sign the POLST and process it once it is signed. Spoke with MALIHA Hyde, who states she is working on a plan and will visit with pt and update his daughter later today. Mukul was appreciative on my visit today. PC will continue to follow.
--- NOTE | 2019-04-28 19:00 | NUR ---
PT. SLEEPING AFTTER RECEIVING ULTRAM. PT HAS EATEN MOST OF HIS MEALS TODAY. NO OTHER NOTEABLE CHANGES THIS SHIFT.
--- NOTE | 2019-04-29 05:50 | NUR ---
SHIFT SUMMARY: MIKE HAD A GOOD NIGHT TONIGHT WITH NO ACUTE CHANGES OR CONCERNS. HE STAYED ON TOP OF HIS PAIN MEDS WHICH HELPED HIM SLEEP IN BETWEEN GETTING HIS ULTRAM. HE HAD NO COMPLAINTS THIS SHIFT, AND STATES HE CANT WAIT TO GO BACK TO [place] TO HIS DAUGHTERS. CATHETER REMAINED PATENT. WILL REPORT TO DAY SHIFT RN.
--- NOTE | 2019-04-29 18:16 | NUR ---
PT. SLEEPING AFTER EATING DINNER. PT. ASKING FOR THE ULTRAM ABOUT EVERY 4-5 HOURS, FALLS ASLEEP AFTER TAKING IT. PROBABLE DISCHARGE ON FRIDAY TO [facility] TO TRAVEL TO [place] WHERE HIS DAUGHTER LIVES. BID CLERK TAKING CARE OF THIS AND PAYING FOR THE TRIP. PT. HAS HAD BM TODAY. MAY CATHETER IN PLACE, PROBABLE DISCHARGE WITH IT.
--- NOTE | 2019-04-30 04:13 | NUR ---
SHIFT SUMMARY PATIENT'S PAIN LEVEL HAS REMAINED AT A STEADY 7 OUT OF 10 WITH THE AIDE OF PRN ULTRAM WHICH WAS ADMINISTERED AT 2333. HE HAS REMAINED IN BED RESTING ALL NIGHT. NO IV ACCESS. INDWELLING CATHETER IS PATENT AND FLOWING WITH CLEAR, YELLOW URINE. BED IS IN LOWEST POSITION WITH WHEELS LOCKED. CALL LIGHT AND BED SIDE TABLE WITHIN REACH. REPORT GIVEN TO ONCOMING RN.
--- NOTE | 2019-04-30 11:10 | NUR ---
Visited with Mukul this morning. He is awake, sitting up in bed and on his computer. He reports he is feeling well and is looking forward to discharge tomorrow via taxi to [place] to take a train to [place]. His POLST form has been signed. Copy of POLST taken and sent to medical records. Original POLST given to pt. He has no requests at this time.
--- NOTE | 2019-04-30 17:07 | NUR ---
SHIFT SUMMARY NO ACUTE CONCERNS. PATIENT IS ALERT AND ORIENTED TO SELF AND REORIENTABLE. HIS MAY IS IN PLACE AND HAS A TRAIN TICKET FOR TOMORROW. HE IS A DISCHARGE AT 11 TOMORROW SO HE CAN BE PICKED UP AND TAKEN TO THE TRAIN STATION IN [place] BY TAXI. EVERYTHING IS SET UP.
--- NOTE | 2019-05-01 05:02 | NUR ---
SHIFT SUMMARY: PT A/OX3. PLEASANT AND COOPERATIVE. MAKING NEEDS KNOWN. REPORTS SLEEPING MINIMALLY DUE TO SOME ANXIETY OVER THE EVENTS OF HIS DISCHARGE TODAY. REQUESTED PAIN MEDS Q4HRS STATING PAIN HAS REMAINED IN L RIBS AND STABLE AT 7/10. HE CAN TOLERATE THIS LEVEL OF PAIN BUT ASKED THAT MEDS BE GIVEN AT 4 HRS TO PREVENT IT FROM GETTING OUT OF HAND. FC PATENT AND DRAINING CLEAR, STRAW COLORED URINE. BED LOW, CALL BUTTON IN REACH.
[2019-05-01] MEDS ORDERED: FINA5 PO (10:25)
[2019-05-01] MEDS ORDERED: Prozac20 MG PO (10:26)
[2019-05-01] MEDS ORDERED: PANT40 PO (10:26)
[2019-05-01] MEDS ORDERED: TAMS.4ER PO (10:26)
[2019-05-01] MEDS ORDERED: AIRDUO RESPICL1 EACH INH (10:27)
== END 2019-05-01 11:06 | disposition home or self-care (01) | DRG 897 ==
LOC: ER 13:00 → ICUE 16:48 → ICUW 16:48 → ICUE 16:48 → ER 18:27 → ICUE 18:42 → MEDS 04-19 16:48 → ICUE 04-19 16:48 → MEDS 04-21 12:50 → ENPENDDIS 05-01 10:15 → MEDS 05-01 11:06
PROVIDERS: Emergency Medicine; Internal Medicine; ADMIT Internal Medicine
DX: F10.231 Alcohol dependence with withdrawal delirium (principal); E51.9 Thiamine deficiency, unspecified; E87.1 Hypo-osmolality and hyponatremia; N30.00 Acute cystitis without hematuria; I48.92 Unspecified atrial flutter; I10 Essential (primary) hypertension; I25.10 Atherosclerotic heart disease of native coronary artery without angina pectoris; F17.290 Nicotine dependence, other tobacco product, uncomplicated; Z95.1 Presence of aortocoronary bypass graft; E78.5 Hyperlipidemia, unspecified; E03.9 Hypothyroidism, unspecified; Z59.0 Homelessness; K59.03 Drug induced constipation; T40.605A Adverse effect of unspecified narcotics, initial encounter; Y92.9 Unspecified place or not applicable; N40.1 Benign prostatic hyperplasia with lower urinary tract symptoms; B96.20 Unspecified Escherichia coli [E. coli] as the cause of diseases classified elsewhere; K27.9 Peptic ulcer, site unspecified, unspecified as acute or chronic, without hemorrhage or perforation; S22.009D Unspecified fracture of unspecified thoracic vertebra, subsequent encounter for fracture with routine healing; S22.39XD Fracture of one rib, unspecified side, subsequent encounter for fracture with routine healing; W19.XXXD Unspecified fall, subsequent encounter
CPT/HCPCS: 36415; 71046; 71260; 74176; 80048; 80053; 81001; 81003; 82272; 83690; 84484; 85014; 85018; 85025; 85379; 87077; 87086; 87186; 93005; 93010; 94640; 94760; 94762; 96361; 96366; 96367; 96374; 96375; 96376; 99285-25; A9270; C9113; G0378; G0480; J2060; J2405; J3411; J3475; J7030; J7042; Q9967